=== PATIENT | female | born 1975 | race Two or more races ===

== ENCOUNTER 2018-07-06 19:37 | Emergency (ER) | payer OTHER ==
[~2018-07-06] VITALS: Ht 162.6 cm; Wt 65.3 kg
[~2018-07-06 19:37] MED LIST: ZANTAC150 M3
[2018-07-06] MEDS ORDERED: VISTARIL50 MG (19:51)
[2018-07-06] MEDS ORDERED: RYTHMOL SR225 MG (19:51)
[2018-07-06] MEDS ORDERED: CLONAZEPAM0.5 MG (19:52)
== END 2018-07-06 22:42 | disposition home or self-care (01) ==
LOC: ER 19:37
DX: M62.838 Other muscle spasm (principal)

== ENCOUNTER 2018-09-14 17:21 | Emergency (ER) | payer OTHER ==
[~2018-09-14] VITALS: Ht 162.6 cm; Wt 66.7 kg
[~2018-09-14 17:21] MED LIST changes: +CLONAZEPAM0.5 MG; +RYTHMOL SR225 MG; +VISTARIL50 MG
== END 2018-09-14 22:20 | disposition home or self-care (01) ==
LOC: ER 17:21
DX: N83.292 Other ovarian cyst, left side (principal)

== ENCOUNTER 2021-11-02 18:10 | Emergency (ER) | payer OTHER ==
[~2021-11-02] VITALS: Ht 162.6 cm; Wt 78.0 kg
[2021-11-02] MEDS ORDERED: SOTALOL80 MG PO (18:32)
[2021-11-02] MEDS ORDERED: PAROXETINE HCL20 MG PO (18:33)
[2021-11-02] MEDS ORDERED: CLONAZEPAM0.5 MG (18:33)
[2021-11-02] MEDS ORDERED: OMEPRAZOLE40 MG PO (18:33)
== END 2021-11-02 19:34 | disposition home or self-care (01) ==
LOC: ER 18:10
DX: N93.9 Abnormal uterine and vaginal bleeding, unspecified (principal)

== ENCOUNTER 2023-09-15 09:52 | Outpatient (CLI) | payer OTHER ==
[~2023-09-15 09:52] MED LIST changes: +OMEPRAZOLE40 MG PO; +PAROXETINE HCL20 MG PO; +SOTALOL80 MG PO
[2023-09-15 11:27] LABS: COL EPI 107 SECONDS (82-175)
[2023-09-15 11:56] LABS: FIBRINOGEN 406 mg/dL (187.0-446.0); INR 0.96; PROTHROMBIN TIME 10.1 SECONDS (9.0-11.5)
[2023-09-15 11:57] LABS: D DIMER 0.46 MG/L
[2023-09-16 14:07] LABS: ANTI SCLERODERMA 70 < 0.2 AI (0.0-0.9); sjogrens ssa < 0.2 AI (0.0-0.9); sjogrens ssb < 0.2 AI (0.0-0.9)
[2023-09-17 14:06] LABS: FACTOR VIII ACTIVITY 119 % (56-140)
== END 2023-09-15 09:59 | disposition home or self-care (01) ==
LOC: LAB 09:52
PROVIDERS: ATTEND Internal Medicine Hematology & Oncology
DX: M32.8 Other forms of systemic lupus erythematosus (principal); D65 Disseminated intravascular coagulation [defibrination syndrome]; D68.8 Other specified coagulation defects; U09.9 Post COVID-19 condition, unspecified; L95.8 Other vasculitis limited to the skin

== ENCOUNTER → 2025-03-13 07:06 | Outpatient (CLI) | payer OTHER | END | disposition home or self-care (01) | LOC: NUCLEAR 06:00 | PROVIDERS: ATTEND Internal Medicine Hematology & Oncology | DX: M19.90 Unspecified osteoarthritis, unspecified site (principal) ==